=== PATIENT | female | born 1990 | race American Indian/Alaskan Native ===

== ENCOUNTER 2016-03-26 15:11 | Outpatient (CLI) | payer BC, MEDICAID ==
[2016-03-26 15:54] LABS: Bacteria,Urine 1+ /HPF (Negative); Bilirubin,Urine SM (Negative); Blood,Urine NEG (Negative); Ketones,Urine 20 mg/dL (Negative); Leukocyte Esterase,Urine LG (Negative); Mucus,Urine 3+ /HPF; Nitrite,Urine NEG (Negative)
[2016-03-26] MEDS ORDERED: LACTATED RINGERS 500 ML IV ONE (16:00)
[2016-03-26 16:46] VITALS: BP 97/60
== END 2016-03-26 18:00 | disposition home or self-care (01) ==
LOC: TRG 15:11
PROVIDERS: ATTEND Obstetrics & Gynecology
DX: O77.9 Labor and delivery complicated by fetal stress, unspecified (principal); O47.9 False labor, unspecified; Z3A.00 Weeks of gestation of pregnancy not specified
CPT/HCPCS: 59025; 81001; 96360

== ENCOUNTER 2016-05-25 20:55 | Inpatient (IN) | payer BC, MEDICAID ==
[2016-05-25] MEDS ORDERED: LACTATED RINGERS 500 ML IV ONE (21:13)
[2016-05-25] MEDS ORDERED: POLYCILLIN/NS 2 GM/100 ML 2 GM/100 ML BAG IV ONE ×2 (21:15→21:23)
[2016-05-25] MEDS ORDERED: LACTATED RINGERS 1,000 ML ONE (21:23)
[2016-05-25] MEDS ORDERED: PITOCin/NS 20 UNIT/1000ML DRIP 20,000 MILLIUNITS/1,000 ML BAG IV ONE (21:23)
[2016-05-25] MEDS ORDERED: SUBLIMAZE ONE (21:34)
[2016-05-25] MEDS ORDERED: SUBLIMAZE IV ONE (21:40)
[2016-05-25] MEDS ORDERED: METHERGINE IM ONE (21:58)
[2016-05-25] MEDS ORDERED: LACTATED RINGERS 1,000 ML IV SCH (22:00)
--- NOTE | 2016-05-25 22:06 | History and Physical Report ---
History of Present Illness Date of examination: 05/25/16 Date of admission: 05/25/16 21:12 Chief complaint: EDC 06/22 @ 36 weeks gestation presentd History of present illness: reported EDC 06/22/16 @ 36 weeks gestation presented to triage with c/o contractions that started at 1930 this evening. 6cn on admit. Quickly progressed to C/C/-1. Denies ROM or vaginal bleeding. GBS unknown. Past History Past Medical History: no pertinent history Past Surgical History: no surgical history Family/Genetic History: none Social history: no significant social history, single - Obstetrical History Expected Date of Delivery: 06/22/16 Actual Gestation: 36 Week(s) 0 Day(s) : 3 Para: 1 Hx # Term Pregnancies: 1 Number of Pregnancies: 1 Number of Living Children: 2 Medications and Allergies Allergies Allergy/AdvReac Type Severity Reaction Status Date / Time No Known Allergies Allergy Verified 05/17/15 12:06 Home Medications Medication Instructions Recorded Confirmed Last Taken Type Pnv with Ca,No.72/Iron/FA 1 tab PO DAILY 08/16/13 05/17/15 05/16/15 08:00 History [ Plus Tablet] Ibuprofen [Motrin] 600 mg PO Q8H PRN #40 tablet 05/18/15 Unknown Rx Active Meds: Active Medications Ampicillin Sodium (Polycillin/Ns 2 Gm/100 Ml) 2 gm in 100 mls @ 100 mls/hr IV ONCE ONE PRN Reason: Protocol Stop: 05/25/16 22:14 Lactated Ringer's (Lactated Ringers) 1,000 mls @ 125 mls/hr IV DIRECT RICHARDSON Review of Systems All systems: negative Genitourinary: normal appearance, contractions, no genital sores - Vital Signs Vital signs: Vital Signs Pulse Pulse Ox 76 99 05/25/16 20:59 05/25/16 20:59 Temp Pulse Resp BP Pulse Ox 79 106/53 79 L 05/25/16 21:59 05/25/16 21:59 05/25/16 21:49 - Physical Exam Abdomen: Positive: normal appearance, other (gravid) - Obstetrical FHR: category 1 Uterine Contraction Monitor Mode: External Cervical Dilatation: 10 Cervical Effacement Percentage: 100 station: -1 Uterine Contraction Frequency (min): 2-4 Uterine Contraction Pattern: Regular Uterine Tone Measurement Phase: Resting Uterine Contraction Intensity: Strong/Firm Results All other labs normal. Assessment and Plan A: IUP at 36 weeks Second Stage Labor Unknown GBS P: AROM Anticipate
--- NOTE | 2016-05-25 22:10 | Procedure Note ---
OB Delivery Note - Delivery Date of Delivery: 05/25/16 (6-0oz female @ 2152) Surgeon: LEIGHA DESIR Estimated blood loss: 300cc - Vaginal Delivery presentation: vertex Delivery position: OA Intrapartum events: none, precipitous labor- <3hr Delivery induction: none Delivery monitor: external FHT, external uterine Route of delivery: Delivery placenta: spontaneous Delivery cord: 3 umbilical vessels Episiotomy: none Delivery laceration: none Anesthesia: none - Infant A at 1 minute: 8 at 5 minutes: 9 Gender: Female (Precip delivery of viable female in OA position over intact perineum. Spont. lusty cry, Placed skin to skin. Spont. placenta, bleeding heavy, fundus messaged firm. Pitocin infusing. Bleeding now scant. No lacerations. Cord blood collected.)
[2016-05-25] MEDS ORDERED: MILK OF MAGNESIA PO PRN (22:19)
[2016-05-25] MEDS ORDERED: BENADRYL PO PRN (22:19)
[2016-05-25] MEDS ORDERED: TYLENOL PO PRN (22:19)
[2016-05-25] MEDS ORDERED: DERMOPLAST TP PRN (22:19)
[2016-05-25] MEDS ORDERED: ZOFRAN IV PRN (22:19)
[2016-05-25] MEDS ORDERED: PHENERGAN PR PRN (22:19)
[2016-05-25] MEDS ORDERED: ANUCORT-HC PR PRN (22:19)
[2016-05-25] MEDS ORDERED: LANSINOH TP PRN (22:19)
[2016-05-25] MEDS ORDERED: TUCKS PAD TP PRN (22:19)
[2016-05-25] MEDS ORDERED: NORCO 5/325 PO PRN (22:19)
[2016-05-25] MEDS ORDERED: SODIUM CHLORIDE FLUSH SYRINGE 10 ML IV PRN (23:00)
[2016-05-26] MEDS: MOTRIN PO SCH ×4 (00:17→18:05)
[2016-05-26 00:37] LABS: Hematocrit 28.9 % (30.3-42.9); Hemoglobin 9.3 gm/dl (10.1-14.3); Mean Corpuscular HGB Conc 32 % (30-34); Mean Corpuscular Volume 79 fl (79-97); Platelet Count 205 K/mm3 (140-440); Red Blood Count 3.67 M/mm3 (3.65-5.03); Red Cell Distribution Width 18.1 % (13.2-15.2); White Blood Count 10.2 K/mm3 (4.5-11.0)
[2016-05-26 00:38] LABS: Mean Corpuscular Hemoglobin 26 pg (28-32)
[2016-05-26] MEDS: COLACE PO SCH ×2 (10:05→22:21)
[2016-05-26] MEDS: PRENATAL VITAMIN PO SCH (10:05)
[2016-05-26 13:35] LABS: Hematocrit 26.4 % (30.3-42.9); Hemoglobin 8.4 gm/dl (10.1-14.3)
--- NOTE | 2016-05-26 13:38 | Progress Note ---
Assessment and Plan O: VSS AF PP H/H: 9.3/28.9 A: S/P Asymptomatic Anemia Precipitious Delivery P: Iron BID Obtain prenatals tomorrow morning D/C am Subjective - Subjective Date of service: 05/26/16 Interval history: reported EDC 06/22/16 @ 36 weeks gestation presented to triage with c/o contractions that started at 1930 this evening. 6cn on admit. Quickly progressed to C/C/-1. Denies ROM or vaginal bleeding. GBS unknown. Patient reports: appetite normal, voiding normally, pain well controlled, flatus , ambulating normally [place]: doing well, bottle feeding Objective - Vital Signs Latest vital signs: Vital Signs Temp Pulse Pulse Resp BP BP Pulse Ox 05/26/16 08:17 98.2 F 65 20 92/56 05/26/16 04:05 98.2 F 74 20 119/72 05/26/16 00:00 98.9 F 66 20 137/62 05/25/16 23:23 66 106/53 05/25/16 23:08 63 104/51 05/25/16 22:53 68 105/51 05/25/16 22:38 70 98/50 05/25/16 22:23 70 102/54 05/25/16 21:59 79 106/53 05/25/16 21:49 98 H 79 L 05/25/16 21:48 73 100 05/25/16 21:16 71 109/55 05/25/16 21:14 75 97 05/25/16 21:09 78 99 05/25/16 21:04 74 98 05/25/16 20:59 76 99 Intake and Output 05/25/16 05/26/16 05/26/16 22:59 06:59 14:59 Intake Total 240 480 Output Total 1400 600 Balance -1160 -120 Intake: Oral 240 480 Output: Urine 1400 600 Void 1400 600 Other: Total, Intake Amount 240 240 Total, Output Amount 600 600 # Voids Void 1 Weight 75.296 kg Estimated Blood Loss 300 - Exam Breasts: Present: deferred Lungs: Present: Normal air movement Abdomen: Present: normal appearance, soft. Absent: distention, tenderness Uterus: Present: normal, firm, fundal height below umbilicus. Absent: bogginess , tenderness Extremities: Present: normal - Labs Labs: Abnormal lab results 05/25/16 Range/Units 21:50 Hgb 9.3 L (10.1-14.3) gm/dl Hct 28.9 L (30.3-42.9) % MCH 26 L (28-32) pg RDW 18.1 H (13.2-15.2) %
--- NOTE | 2016-05-26 13:41 | Discharge Summary ---
Providers - Providers Date of Admission: 05/25/16 21:12 Date of discharge: 05/27/16 Attending physician: FLORIDA MORELOS Primary care physician: FLORIDA MORELOS Hospitalization Reason for admission: active labor, IUP at term Delivery: Episiotomy: none Laceration: none Other procedures: none complications: none Discharge diagnosis: IUP at term delivered [place] baby: female Condition at discharge: Good Disposition: DISCHARGED TO HOME OR SELFCARE Plan - Discharge Medications Prescriptions: Docusate Sodium [Colace] 100 mg PO BID PRN #30 capsule PRN Reason: Constipation Ferrous Sulfate [Feosol 325 MG tab] 325 mg PO BID #60 tablet Ibuprofen [Motrin 600 MG tab] 600 mg PO Q6HR PRN #30 tablet PRN Reason: Pain - Provider Discharge Summary Activity: routine, no sex for 6 weeks, no heavy lifting 4 weeks, no strenuous exercise Diet: routine Additional instructions: [] Smoking cessation referral if applicable(refer to patient education folder for contact #) [] Refer to [facility]'s [facility] Booklet Call your doctor immediately for: * Fever > 100.5 * Heavy vaginal bleeding ( >1 pad per hour) * Severe persistent headache * Shortness of breath * Reddened, hot, painful area to leg or breast * Drainage or odor from incision. * Keep incision clean and dry at all times and follow doctor's instructions regarding bathing/showering - Follow up plan Follow up: FLORIDA MORELOS MD [Primary Care Provider] - (RTO six weeks PP)
[2016-05-26] MEDS ORDERED: M-M-R II VACCINE SUB-Q ONE (22:19)
[2016-05-26] MEDS: FEOSOL PO SCH (22:21)
[2016-05-27] MEDS: MOTRIN PO SCH (00:30)
[2016-05-27] MEDS: FEOSOL PO SCH (10:23)
[2016-05-27] MEDS: PRENATAL VITAMIN PO SCH (10:23)
[2016-05-27] MEDS: COLACE PO SCH (10:23)
[2016-05-27 13:16] VITALS: BP 112/64
== END 2016-05-27 15:15 | disposition home or self-care (01) | DRG 775 ==
LOC: TRG 20:55 → LD 21:12 → TRG 21:12 → OB 23:46
PROVIDERS: ADMIT Obstetrics & Gynecology; ATTEND Obstetrics & Gynecology
PROC: 10E0XZZ Delivery of Products of Conception, External Approach (ICD-10-PCS; principal; 2016-05-25)
PROC: 10907ZC Drainage of Amniotic Fluid, Therapeutic from Products of Conception, Via Natural or Artificial Opening (ICD-10-PCS; 2016-05-25)
DX: O62.3 Precipitate labor (principal); D64.9 Anemia, unspecified; O99.02 Anemia complicating childbirth; Z3A.36 36 weeks gestation of pregnancy; Z37.0 Single live birth
CPT/HCPCS: 36415; 85014; 85018; 85027; 86850; 86900; 86901; 99211; G0463; J0290; J2210; J2590; J3010; J7120

== ENCOUNTER 2016-07-15 09:30 | Outpatient (CLI) | payer BC, MEDICAID ==
[2016-07-15] MEDS ORDERED: XYLOCAINE TOPICAL 4% TP ONE ×2 (10:08→10:24)
== END 2016-07-15 09:31 | disposition home or self-care (01) ==
LOC: WOUND 09:30
PROVIDERS: ATTEND Surgery
DX: S41.131A Puncture wound without foreign body of right upper arm, initial encounter (principal); X58.XXXA Exposure to other specified factors, initial encounter; Y93.89 Activity, other specified; Y92.89 Other specified places as the place of occurrence of the external cause; Y99.8 Other external cause status
CPT/HCPCS: 11042; 11045; G0463

== ENCOUNTER 2016-07-23 09:22 | Outpatient (CLI) | payer BC, MEDICAID ==
[2016-07-23] MEDS ORDERED: XYLOCAINE TOPICAL 4% TP ONE ×2 (10:15→10:21)
== END 2016-07-23 09:23 | disposition home or self-care (01) ==
LOC: WOUND 09:22
PROVIDERS: ATTEND Surgery
DX: S41.131A Puncture wound without foreign body of right upper arm, initial encounter (principal); X58.XXXA Exposure to other specified factors, initial encounter; Y93.89 Activity, other specified; Y92.89 Other specified places as the place of occurrence of the external cause; Y99.8 Other external cause status

== ENCOUNTER 2016-07-29 10:13 | Outpatient (CLI) | payer BC, MEDICAID ==
[2016-07-29] MEDS ORDERED: XYLOCAINE TOPICAL 4% TP ONE ×2 (10:38→11:33)
== END 2016-07-29 10:14 | disposition home or self-care (01) ==
LOC: WOUND 10:13
PROVIDERS: ATTEND Internal Medicine
DX: S41.111D Laceration without foreign body of right upper arm, subsequent encounter (principal); M21.821 Other specified acquired deformities of right upper arm; V49.9XXD Car occupant (driver) (passenger) injured in unspecified traffic accident, subsequent encounter

== ENCOUNTER 2016-08-05 10:29 | Outpatient (CLI) | payer BC, MEDICAID ==
[2016-08-05] MEDS ORDERED: XYLOCAINE TOPICAL 4% TP ONE (10:37)
== END 2016-08-05 10:30 | disposition home or self-care (01) ==
LOC: WOUND 10:29
PROVIDERS: ATTEND Internal Medicine
DX: S41.111D Laceration without foreign body of right upper arm, subsequent encounter (principal); M21.821 Other specified acquired deformities of right upper arm; V49.9XXD Car occupant (driver) (passenger) injured in unspecified traffic accident, subsequent encounter

== ENCOUNTER 2016-08-12 10:53 | Outpatient (CLI) | payer BC, MEDICAID ==
[2016-08-12] MEDS ORDERED: XYLOCAINE TOPICAL 4% TP ONE (11:17)
== END 2016-08-12 10:54 | disposition home or self-care (01) ==
LOC: WOUND 10:53
PROVIDERS: ATTEND Internal Medicine
DX: S41.111D Laceration without foreign body of right upper arm, subsequent encounter (principal); M21.821 Other specified acquired deformities of right upper arm; H53.8 Other visual disturbances; K21.9 Gastro-esophageal reflux disease without esophagitis; X58.XXXD Exposure to other specified factors, subsequent encounter

== ENCOUNTER 2016-08-19 09:40 | Outpatient (CLI) | payer BC, MEDICAID ==
[2016-08-19] MEDS ORDERED: XYLOCAINE TOPICAL 2% ONE (10:55)
[2016-08-19] MEDS ORDERED: XYLOCAINE TOPICAL 2% TP ONE (11:01)
== END 2016-08-19 09:41 | disposition home or self-care (01) ==
LOC: WOUND 09:40
PROVIDERS: ATTEND Internal Medicine
DX: S41.111D Laceration without foreign body of right upper arm, subsequent encounter (principal); M21.821 Other specified acquired deformities of right upper arm; V49.88XD Car occupant (driver) (passenger) injured in other specified transport accidents, subsequent encounter